=== PATIENT | female | born 1935 | race Caucasian/White ===

== ENCOUNTER 2016-09-09 15:11 | Emergency (ER) | payer MEDICARE, BC ==
[~2016-09-09] VITALS: Ht 154.9 cm; Wt 68.1 kg
[~2016-09-09 15:11] MED LIST: ASPI81TA2 PO; CALC1TAB PO; CARV3.123 PO; FISH1CAP2 PO; ISOS60TA4 PO; LEVO25TA9 PO; LORA10TA7 PO; MAGN200T4 PO; MELA1TAB15 PO; MULT1TAB69 PO; RED600TA PO; SERT50TA12 PO; TEMA30CA PO; VIT1CAPS47 PO
--- OUTSIDE RECORDS SUMMARY | 2016-09-09 15:15 | XMS REPORT | Continuity of Care Document ---
Author Author [facility] Organization [facility] Address Unknown Phone Unavailable Allergies Active Description Code Type Severity Reaction Onset Reported/Identified Relationship to Patient Clinical Status Yes SULFA ASULFA N/A N/A Yes Sulfa (Sulfonamide Antibiotics) 491 Unknown N/A Medications Medication Packaging Start Date Stop Date Route Dosage Sig DOCUSATE SODIUM 08/29/2016 08/29/2016 BIDPRN ACETAMINOPHEN 08/29/2016 08/29/2016 Q4HPRN ACETAMINOPHEN 08/29/2016 08/29/2016 Q4HPRN SODIUM CHLORIDE 0.9 % 08/29/2016 08/29/2016 PRNIV ALUM-MAG HYDROXIDE-SIMETH 08/29/2016 08/29/2016 Q4HPRN MAGNESIUM HYDROXIDE 08/29/2016 08/29/2016 HSPRN FLUTICASONE 08/29/2016 08/29/2016 QDPRN CARVEDILOL 08/29/2016 08/29/2016 BIDWM ASPIRIN EC 08/29/2016 08/29/2016 0700 amLODIPine 08/29/2016 08/29/2016 QD LEVOTHYROXINE 08/29/2016 08/29/2016 ACB BENAZEPRIL 08/29/2016 08/29/2016 QD ISOSORBIDE MONONITRATE 08/29/2016 08/29/2016 HS Problems Procedures Results Test Result Range CBC NO DIFF (HEMOGRAM) - 08/29/16 08:30 WBC - WHITE CELL COUNT 5.8 X10(3) 4.5-11.0 RBC - RED CELL COUNT 3.27 X10(6) 4.20-5.40 PLATELET COUNT 184 X10(3) 150-450 HEMOGLOBIN 12.1 g/dl 12.0-16.0 HEMATOCRIT 34.2 % 38.0-47.0 MCV 104.6 fL 80.0-96.0 MCH 37 pg 27-31 MCHC 35.4 % 32.0-36.0 HOLD SPECIMEN FOR BLOOD BANK - 08/29/16 08:30 HOLD SPECIMEN FOR BLOOD BANK ARC LIPID PANEL - 08/29/16 08:30 CHOLESTEROL 183 mg/dl <=199 HDL CHOLESTEROL 70 mg/dl 40-60 TRIGLYCERIDES 96 mg/dl <=200 LDL, CALCULATED 93.8 mg/dl 0.0-99.0 VLDL, CALCULATED 19.2 mg/dl 0.0-130.0 CARDIAC RISK 3 CMP - COMPREHENSIVE METABOLIC PANEL - 08/29/16 08:30 GLUCOSE 92 mg/dl 74-106 BUN 16 mg/dl 7-18 CREATININE 1.06 mg/dl 0.55-1.02 eGFR 50 mL/min SODIUM (NA) 144 mEq/L 136-146 POTASSIUM, BLOOD 4.0 mEq/L 3.5-5.1 CHLORIDE 109 mEq/L 98-107 CO2 (BICARBONATE) 28 mEq/L 21-32 CALCIUM 8.8 mg/dl 8.5-10.1 ALBUMIN, SERUM 3.4 g/dl 3.4-5.0 PROTEIN, TOTAL 6.4 g/dl 6.4-8.2 AST (SGOT) 19 U/L 15-37 ALT (SGPT) 20 U/L 14-59 ALK PHOS 76 U/L 46-116 BILIRUBIN, TOTAL 0.3 mg/dl 0.2-1.0 Encounters ACCT No. Visit Date/Time Discharge Status Pt. Type Provider Facility Loc./Unit Complaint [id number] 08/29/2016 07:49:00 08/29/2016 19: 24:00 DIS Outpatient SHANNAN WILKERSON [facility] 120 CAD, CP
[2016-09-09 15:17] VITALS: Ht 154.9 cm; Wt 68.1 kg
--- NOTE | 2016-09-09 15:47 | ERPDOC ---
Departure Disposition Decision Date: Sep 09, 2016 Disposition Decision Time: 17:42 (AGATA LATHAM APRN) Disposition: 01 DISCHARGED HOME, SELF-CARE Impression Impression (AGATA LATHAM APRN) Impression: Primary Impression: Groin lump Additional Impression: Status post cardiac catheterization Severity: Moderate (AGATA LATHAM APRN) Condition: Stable Seen By: Mid-level only (AGATA LATHAM APRN) Referrals: YUAN RAE MD (Family) Patient Instructions: Wound Healing and Your Diet (ED) Problems/Meds/Labs Reviewed?: Yes Medications reviewed and manag: Yes (AGATA LATHAM APRN) Additional Instructions: Your arterial ultrasound was negative for a pseudoaneurysm. If you have any additional problems follow with Dr. Do your qa engineer. Follow up care ordered?: Yes Mental Status: Alert, Oriented (AGATA LATHAM APRN) HPI - General Medical General Chief Complaint: Post-Surgical Problem Stated Complaint: POST SURG PAIN Time Seen by Provider: 15:37 Source: patient (AGATA LATHAM APRN) Time Seen by Provider: 15:37 (RAUL PERES DO) HPI - General Medical Initial Comments 81-year-old female presents to ED status post cardiac catheterization on . Patient states that she was told to go directly to the ER if she had any swelling or lumps at cath site in groin. Patient states that for the past 2 days she has noticed a lump at catheterization site in right groin that is larger than a pea. Patient states that she has had intermittent tingling in her thigh as well, however she has this associated also with her chronic back pain. Patient denies fever, chill, pain in groin, or increased ecchymosis or abdominal distension. Dr. Do is her qa engineer who did heart catheterization. Pain Scale: Now: 0/10 Associated Symptoms: DENIES: chest pain, cough, diaphoresis, fever/chills, headaches, loss of appetite, malaise, nausea/vomiting, rash, seizure, shortness of breath, syncope, weakness (AGATA LATHAM APRN) Allergies: Coded Allergies: Fxuxulb-Yqq-Skn Reductase Inhibitor (Unverified Allergy, Unknown, 12/24/14) Sulfa (Sulfonamide Antibiotics) (Verified Allergy, Unknown, HIVES, ) atorvastatin calcium (Verified Allergy, Unknown, 11/11/09) pravastatin sodium (Verified Allergy, Unknown, 11/11/09) simvastatin (Verified Allergy, Unknown, 11/11/09) sulfamethoxazole (Verified Allergy, Unknown, 11/11/09) trimethoprim (Verified Allergy, Unknown, 11/11/09) naproxen sodium (Verified Adverse Reaction, Unknown, 03/21/11) Past History Past Medical History Metabolic: hypercholesterolemia, hypertension, hypothyroidism Cardiac: DENIES: angina Respiratory: DENIES: asthma GI: DENIES: ulcers Female: DENIES: renal insufficiency Neurological: DENIES: seizures Musculoskeletal: osteoarthritis Psychological: DENIES: depression (AGATA LATHAM GEOPHYSICAL DRAFTER) Surgical History General: appendix, other (parial thyroidectomy) Cardiac: cardiac bypass, cardiac cath (AGATA LATHAM APRN) Family History Family PMH: FOUND: other (noncontributory) (AGATA LATHAM APRN) Vaccines Hx Influenza Vaccination: Yes (FALL 2013) (AGATA LATHAM APRN) Social History Marital Status: Sexuality: male partner (AGATA LATHAM APRN) Review of Systems Constitutional Constitutional: DENIES: chills, dizziness, fever, weakness (AGATA LATHAM GEOPHYSICAL DRAFTER) Eyes General: DENIES: erythema, exudate Lids/Accessories: DENIES: erythema, swelling (AGATA LATHAM GEOPHYSICAL DRAFTER) ENMT Ears: DENIES: pain Hearing: DENIES: hearing loss Sinuses: DENIES: congestion, rhinorrhea Mouth/Throat: DENIES: sore throat (KARINA LATHAMS A GEOPHYSICAL DRAFTER) Cardiovascular Cardiac: DENIES: chest pain, murmur Rhythm/Rate: DENIES: palpitations (KARINA LATHAMS Jan GEOPHYSICAL DRAFTER) Pulmonary Respiratory: DENIES: cough, dyspnea (KARINA LATHAMS A GEOPHYSICAL DRAFTER) GI Upper Abdomen: DENIES: nausea, pain, vomiting Lower Abdomen: DENIES: blood in stool, diarrhea, pain (KARINA LATHAMS A GEOPHYSICAL DRAFTER) General: DENIES: dysuria, pain (KARINA LATHAMS A GEOPHYSICAL DRAFTER) Musculoskeletal General: DENIES: joint pain, pain, tenderness (AGATA LATHAM A GEOPHYSICAL DRAFTER) Integumentary Skin: DENIES: color change, itching, rash (KARINA LATHAMS A GEOPHYSICAL DRAFTER) Neurological General: DENIES: ataxia, change in strength, numbness, paralysis/paresis, weakness (AGATA LATHAM GEOPHYSICAL DRAFTER) Psychiatric Psychiatric: DENIES: anxiety, depression, nervousness (AGATA LATHAM GEOPHYSICAL DRAFTER) Physical Exam General General Nourishment: well nourished, well developed, adult General Body Habitus: well groomed (AGATA LATHAM APRN) Vitals and Pain First Documented Vital Signs Date Time Temp Pulse Resp B/P Pulse Ox O2 Delivery O2 Flow Rate FiO2 09/09/16 15:17 97.7 65 16 146/74 98 Room Air (RAUL PERES DO) Vitals and Pain Weight: Kilograms: Height (feet): 5 Height (inches): 1.00 Triage Pain Scale: (AGATA LATHAM APRN) Eyes (brief) Eyes Brief: found: EOMI (AGATA LATHAM APRN) ENMT (brief) ENMT Brief: NOT FOUND: nasal exudate, nasal swelling (KARINA LATHAMS A GEOPHYSICAL DRAFTER) Neck (brief) Neck: FOUND: trachea midline (KARINA LATHAMS Jan GEOPHYSICAL DRAFTER) Respiratory (brief) Respiratory: FOUND: clear all conley, equal bilaterally, symmetrical (KARINA LATHAMS A GEOPHYSICAL DRAFTER) Cardiovascular (brief) Cardiac: FOUND: regular rate, regular rhythm Pulses: all distal extremities, equal, strong (KARINA LATHAMS A GEOPHYSICAL DRAFTER) Musculoskeletal Extremity : Side: Right Extremity: thigh Extremity Findings: FOUND: discoloration (approximately a 1 cm 8 cm horizontal area of ecchymosis consistent with heart cath), pain (Mild TTP at incision site in groin (over femeral artery)), swelling (appox 2x2 cm lump under tissue at cath site over the femoral artery in groin), NOT FOUND: deformity (KARINA LATHAMS A GEOPHYSICAL DRAFTER) Integumentary (brief) Integumentary Brief: FOUND: dry, pink, warm (KARINA LATHAMS A GEOPHYSICAL DRAFTER) Neurologic (brief) Neurological Brief: FOUND: motor-no gross deficits, sensory-no gross deficits ( KARINA LATHAMS A GEOPHYSICAL DRAFTER) Psychiatric (brief) Psychiatric Brief: FOUND: alert, normal affect, oriented (KARINA LATHAMS A GEOPHYSICAL DRAFTER ) Differential Diagnoses Considering: Other (pseudoaneurysm, lymphadenopathy, abscess, cellulitis) (AGATA LATHAM GEOPHYSICAL DRAFTER) Progress Results/Orders Orders Procedure Category Date Status Time Us Arterial Extremity US 09/09/16 Resulted Lower Rt (RAUL PERES DO) Progress Progress I discussed arterial ultrasound results with patient and answer questions. Patient verbalized understanding of treatment plan, follow-up with Dr. Meadows as needed and return precautions. (AGATA LATHAM APRN) Consult/PCP Consult/PCP : Type of discussion: Phone Consult/PCP Discussion Details I discussed patient's exam findings with Dr. Lindo taking call for Dr. Do. He suggested we go ahead and get an arterial ultrasound to rule out pseudoaneurysm even with minimal symptoms. (AGATA LATHAM APRN) Ultrasound US : Ultrasound: Arterial Doppler Interpretation: Normal (no pseudoaneurysm) (AGATA LATHAM APRN) AGATA LATHAM APRN Sep 09, 2016 15:47 RAUL PERES DO Sep 13, 2016 06:38
--- OUTSIDE RECORDS SUMMARY | 2016-09-09 15:48 | XMS REPORT | Continuity of Care Document ---
Author Author [facility] Organization [facility] Address Unknown Phone Unavailable Allergies Active Description [...] Status Pt. Type Provider Facility Loc./Unit Complaint [id number] 08/29/2016 07:49:00 08/29/2016 19: 24:00 DIS Outpatient SHANNAN WILKERSON [facility] 120 CAD, CP
--- NOTE | 2016-09-09 15:54 | NUR ---
PROVIDER Ever ALTHAM APRN AT BEDSIDE FOR EXAM.
[2016-09-09] MEDS ORDERED: MAGN400C PO (16:01)
[2016-09-09] MEDS ORDERED: CALC-235 PO (16:04)
[2016-09-09] MEDS ORDERED: AMLO2.5T PO (16:07)
[2016-09-09] MEDS ORDERED: CARV12.52 PO (16:07)
[2016-09-09] MEDS ORDERED: BENA5TAB3 PO (16:07)
--- NOTE | 2016-09-09 16:55 | NUR ---
STATUS PT RESTING IN CART. DENIES NEEDS AT THIS TIME. ADVISED WAITING FOR SONO TO COME FOR ULTRASOUND. CALL LIGHT WITHIN, REACH WILL CONTINUE TO MONITOR.
--- NOTE | 2016-09-09 17:15 | NUR ---
SONO AT BEDSIDE.
[2016-09-09 18:30] VITALS: BP 133/60; PULSE 56; RESP 16; TEMP 97.7; O2SAT 97
--- NOTE | 2016-09-09 18:30 | NUR ---
DISCHARGE WRITTEN INSTRUCTIONS REVIEWED AND SENT WITH PT. PT VERBALIZES UNDERSTANDING OF DI, DENIES QUESTIONS. STATES "I CAME IN MORE FOR REASSURANCE THAN ANYTHING." PT AMBULATES OUT OF ER WITH STEADY GAIT ACCOMP BY SPOUSE AT THIS TIME.
--- NOTE | 2016-09-10 10:54 | DI ---
Indication: ITS.REASON: status post heart cath on 3, mild swelling at site PROCEDURE: US ARTERIAL EXTREMITY LOWER RT: Technique: Grayscale color and duplex Doppler imaging was performed of the arterial tree of the right groin. Findings: Normal arterial and venous waveforms in the common femoral and superficial femoral artery and vein. No AV fistula or pseudoaneurysm identified. No fluid collection or significant hematoma. IMPRESSION: No pseudoaneurysm seen. There is a preliminary report by virtual radiologic. .
== END 2016-09-09 18:30 | disposition home or self-care (01) ==
LOC: ED 15:11
DX: R22.41 Localized swelling, mass and lump, right lower limb (principal); M79.89 Other specified soft tissue disorders; M79.651 Pain in right thigh; R20.2 Paresthesia of skin; Z98.890 Other specified postprocedural states

== ENCOUNTER → 2016-10-27 | Outpatient (CLI) | payer MEDICARE, BC ==
[~2016-10-27] MED LIST changes: +AMLO2.5T PO; -ASPI81TA2 PO; +BENA5TAB3 PO; +CALC-235 PO; -CALC1TAB PO; +CARV12.52 PO; -CARV3.123 PO; -LORA10TA7 PO; -MAGN200T4 PO; +MAGN400C PO; -MELA1TAB15 PO; -SERT50TA12 PO
== END ==
LOC: WC.BC 16:06
DX: Z12.31 Encounter for screening mammogram for malignant neoplasm of breast (principal); N64.59 Other signs and symptoms in breast
CPT/HCPCS: 77063; G0202

== ENCOUNTER 2017-08-21 03:53 | Observation (INO) ==
[2017-08-21] MEDS ORDERED: METHYLPREDNISOLONE SOD SUCC 125mg/2ml INJECTION IVP ONE (04:03)
[2017-08-21] MEDS ORDERED: DiphenhydrAMINE 50 MG/ML INJECTION IVP ONE ×2 (04:03→11:00)
[2017-08-21] MEDS ORDERED: EPINEPHrine 1mg/ml PRESERVATIVE-FREE INJ AMP IM ONE (04:03)
--- NOTE | 2017-08-21 04:07 | Emergency Department Report ---
General Adult HPI - General Chief complaint: Medical Emergency Stated complaint: swelling tongue, diff breathing Time Seen by Provider: 08/21/17 04:03 Source: patient, family Mode of arrival: ambulatory Limitations: no limitations - History of Present Illness HPI narrative: Patient is a 82-year-old female presents emergency room for evaluation of swelling of the tongue. Patient awoke this morning approximately 1:30 AM felt that she had bitten the right side of her tongue. Patient's had increasing swelling, does state she might feel mildly short of breath. Patient decided this morning to present to the ER for evaluation no acute distress on arrival Onset (ago): hour(s) - Related Data Home Medications Medication Instructions Recorded Confirmed Multivitamin [Multivitamins] 1 tab PO DAILY #0 12/24/14 08/21/17 [place]-3 Fatty Acids/Fish Oil [Fish 3,000 mg PO DAILY #0 12/24/14 08/21/17 Oil 1,000 mg Capsule] Red Yeast Rice 1,200 mg PO DAILY #0 12/24/14 08/21/17 Calcium Carb/D3/Magnesium/Zinc 1 tab PO DAILY #0 09/09/16 08/21/17 [Msbdcsl-Cim-Zhow-Vit D Tablet] Magnesium Oxide [Magnesium] 400 mg PO DAILY #0 09/09/16 08/21/17 Amlodipine [Norvasc] 2.5 mg PO DAILY 08/21/17 08/21/17 Isosorbide Mononitrate ER [Imdur] 30 mg PO DAILY 08/21/17 08/21/17 Temazepam [Restoril] 30 mg PO DAILY 08/21/17 08/21/17 Previous Rx's Medication Instructions Recorded levothyroxine 25 mcg tablet 0.5 tab PO DAILY #90 tab 12/20/16 Coreg (carvedilol) 12.5 mg tablet 12.5 mg PO BID #180 tab 06/08/17 benazepril 5 mg tablet 5 mg PO DAILY #90 tab 08/20/17 Allergies Allergy/AdvReac Type Severity Reaction Status Date / Time simvastatin Allergy Unknown Verified 08/21/17 04:10 Brwuogd-Ljm-Wix Reductase Allergy Unknown Verified 08/21/17 04:10 Inhibitor Sulfa (Sulfonamide Allergy Unknown HIVES Verified 08/21/17 04:10 Antibiotics) sulfamethoxazole Allergy Unknown Verified 08/21/17 04:10 trimethoprim Allergy Unknown Verified 08/21/17 04:10 naproxen AdvReac Verified 08/21/17 04:10 Review of Systems Constitutional: Denies: fever, chills, weakness Eyes: Denies: eye pain, eye discharge, vision change ENT: Reports: dysphagia, other (swelling of the tongue). Denies: ear pain, throat pain, dental pain Cardiovascular: Denies: chest pain, palpitations Respiratory: Denies: cough, dyspnea, wheezes Gastrointestinal: Denies: abdominal pain, nausea, vomiting Genitourinary: Denies: urgency, dysuria, frequency Musculoskeletal: Denies: back pain, joint swelling Integumentary: Reports: swelling (tongue swelling). Denies: alopecia, change in hair, rash Neurological: Denies: headache, weakness Psychiatric: Denies: anxiety Endocrine: Denies: fatigue Hematological/Lymphatic: Denies: easy bleeding Allergic/Immunologic: Reports: facial swelling PFS Patient Stated Medical History Coronary Artery Disease Yes Hypertension Yes Gastroesophageal Reflux Yes Disease Clinic Medical History (Last Updated 08/10/17 @ 10:22 by Maria Ines Davis APRN) Difficulty sleeping (Chronic Medical) Hypothyroidism (Chronic Medical) Dyspepsia (Chronic Medical) Family history of colon cancer in father (Chronic Medical) Environmental allergies (Chronic Medical) CAD (coronary artery disease) (Chronic Medical) Hypercholesteremia (Chronic Medical) Low back pain syndrome (Chronic Medical) Thyroid goiter (Chronic Medical) 1994 History of seizure (Chronic Medical) 1953 Surgical History: R thyroid-07/1996. Appendectomy. Tubal surgery. stent LAD 1998. CABG 01/2000;. Heart cath 12/2000, 05/2009, 08/2016. Ventral hernia-2003. D&C 03/2011 for thickened endometrial stripe. Bilateral cataract excision 08/2011. Colonoscopy 2014 Family History: Family History (Last Reviewed 05/21/17 @ 10:27 by JANIYA Terrell) Father , 77 Colon cancer CVA (cerebral vascular accident) Mother , 61 CAD (coronary artery disease) Myocardial infarct Sister Macular degeneration Hypercholesteremia Sister CAD (coronary artery disease) Macular degeneration Brother Colon cancer CAD (coronary artery disease) - Social History Smoking status: Never smoker Substance use type: does not use Alcohol intake frequency: does not drink Household members: spouse Current occupational status: retired Physical Exam - General General appearance: alert, in no apparent distress - Eye Eye exam: Present: EOMI - ENT ENT exam: Present: other (patient does have moderate market swelling to right side of tongue, and sub-lingular space) - Neck Neck exam: Present: full ROM, trachea midline. Absent: lymphadenopathy - Chest Chest inspection: Present: symmetric chest wall rise. Absent: tenderness - Respiratory Respiratory exam: Present: normal lung sounds bilaterally. Absent: respiratory distress, wheezes, stridor - Cardiovascular Cardiovascular exam: Present: regular rate, normal rhythm, normal heart sounds - Abdominal Exam Abdominal exam: Present: soft, normal bowel sounds. Absent: distention, tenderness - Back Exam Back exam: Absent: tenderness - Skin Skin exam: Present: warm, dry. Absent: rash, erythema - Neurological Exam Neurological exam: Present: alert, oriented X3 - Psychiatric Psychiatric exam: Present: normal affect, normal mood Course Vital Signs Temperature 98 F 08/21/17 04:20 Pulse Rate 62 08/21/17 04:20 Respiratory Rate 12 08/21/17 04:20 Blood Pressure 124/66 08/21/17 04:20 Pulse Oximetry 98 08/21/17 04:20 Temperature 98 F 08/21/17 04:20 Pulse Rate 58 L 08/21/17 05:15 Respiratory Rate 12 08/21/17 04:20 Blood Pressure 141/66 H 08/21/17 05:15 Pulse Oximetry 97 08/21/17 05:15 Medical Decision Making - [facility] Narrative Medical decision making narrative: Patient was given epinephrine immediately on arrival as well as IV Benadryl, Solu-Medrol, and Pepcid. Patient is observed in the emergency department for the last hour with minimal improvement, however patient does states she is not feeling any worse. Discuss case with Dr. Carlos will admit observation status to the floor - Lab Data Result diagrams: 08/21/17 04:45 08/21/17 04:45 Lab Results 08/21/17 08/21/17 Range/Units 04:45 04:45 WBC 11.2 H (4.5-11.0) T/MM3 RBC 3.27 L (4.00-5.20) M/MM3 Hgb 11.8 L (12-16) GM/DL Hct 35.1 L (36-46) % MCV 107.3 H (80-100) UM3 MCH 36.1 H (26-34) UUG MCHC 33.6 (31-37) GM/DL RDW Std Deviation 47.2 (36.9-50.2) FL Plt Count 351 (130-400) T/MM3 MPV 9.3 L (9.4-12.4) UM3 Immature Gran % (Auto) 0.4 (0.0-0.5) % Neut % (Auto) 57.2 (33-66) % Lymph % (Auto) 30.2 (23-45) % [place] % (Auto) 8.7 (0-9.0) % Eos % (Auto) 3.1 (0-4) % Baso % (Auto) 0.4 (0-2) % Neut # (Auto) 6.4 (1.8-7.7) T/MM3 Lymph # (Auto) 3.4 (1-4.8) T/MM3 [place] # (Auto) 1.0 H (0-0.8) T/MM3 Eos # (Auto) 0.4 (0-0.5) T/MM3 Baso # (Auto) 0.1 (0-0.2) T/MM3 Abs Immat Gran (auto) 0.04 H (0.00-0.03) T/MM3 Turbidity < 20 (0-20) Sodium 146 H (134-144) MEQ/L Potassium 3.9 (3.6-5) MEQ/L Chloride 108 H (98-107) MEQ/L Carbon Dioxide 26 (22-30) MEQ/L Anion Gap 12 (5-15) MEQ/L BUN 10.0 (7-17) MG/DL Creatinine 0.8 (0.7-1.2) mg/dL GFR Calculation 69 BUN/Creatinine Ratio 13 (6-26) RATIO Glucose 127 H (65-110) MG/DL Calculated Osmolality 282 H (261-280) MOSM/KG Calcium 9.3 (8.4-10.2) MG/DL Icterus Index < 2 (0-7) Specimen Hemolysis < 15 (0-25) Critical Care Time Critical Care Time: Yes Total Critical Care Time: 38 Attestation: The high probability of a clinically significant, sudden or life threatening deterioration of the respiratory system(s) required my full and direct attention , intervention and personal management. The aggregate critical care time was 38 minutes. This time is in addition to time spent performing reported procedures but includes the following: X Data Review and interpretation X Patient assessment and monitoring of vital signs X Documentation X Medication orders and management Disposition Clinical Impression: Angioedema Qualifiers: Encounter type: initial encounter Qualified Code(s): T78.3XXA - Angioneurotic edema, initial encounter Disposition: 02 To OBS [facility] Condition: Stable Prescriptions: No Action Multivitamin [Multivitamins] 1 tab PO DAILY #0 [place]-3 Fatty Acids/Fish Oil [Fish Oil 1,000 mg Capsule] 3,000 mg PO DAILY #0 Magnesium Oxide [Magnesium] 400 mg PO DAILY #0 Calcium Carb/D3/Magnesium/Zinc [Qbuhtzx-Vlj-Nmua-Vit D Tablet] 1 tab PO DAILY #0 Amlodipine [Norvasc] 2.5 mg PO DAILY Temazepam [Restoril] 30 mg PO DAILY Isosorbide Mononitrate ER [Imdur] 30 mg PO DAILY Red Yeast Rice 1,200 mg PO DAILY #0 levothyroxine 25 mcg tablet 0.5 tab PO DAILY #90 tab Coreg (carvedilol) 12.5 mg tablet 12.5 mg PO BID #180 tab benazepril 5 mg tablet 5 mg PO DAILY #90 tab Referrals: Maria Ines Davis APRN [Family Provider] - Time of Disposition: 05:17 - Seen By: physician
[2017-08-21] MEDS: SALINE FLUSH 10ml SYRINGE IVF PRN ×2 (04:10→04:12)
[2017-08-21] MEDS ORDERED: NS 1,000 ML IV SCH (04:45)
[2017-08-21] MEDS ORDERED: FAMOTIDINE PB 20 MG/50 ML BAG IV SCH (04:45)
[2017-08-21] MEDS ORDERED: ONDANSETRON 4 MG/2 ML INJECTION IVP PRN (05:32)
--- NOTE | 2017-08-21 05:51 | History & Physical Report ---
History of Present Illness Date: 08/21/17 Chief complaint: tongue swelling HPI: Patient was seen via telemedicine with nursing assistance on 08/21/2017. Mrs. Hammer is a pleasant 82yo woman with h/o CAD s/p CABG and subsequent stent , essential HTN, dyslipidemia, hypothyroidism presenting after awakening at 0130 feeling as though her tongue were numb. She then realized it was swollen more on the R side with some thickening and difficulty with swallow. No mouth trauma, incontinence, SCOTT or other pain. No nausea or vomiting. Notes recent amoxicillin from more bronchitis symptoms, but no other medication changes. Benazepril for a year of note. No dyspnea. Given benadryl, famotidine, steroids iv in the ED and feeling mildly better with still dysarthria and dysphagia. Review of Systems All systems PM: 10-point ROS was reviewed, no additional remarkable complaints except Past Medical History Clinic Medical History (Last Updated 08/10/17 @ 10:22 by Maria Ines Davis APRN) Difficulty sleeping (Chronic Medical) Hypothyroidism (Chronic Medical) Dyspepsia (Chronic Medical) Family history of colon cancer in father (Chronic Medical) Environmental allergies (Chronic Medical) CAD (coronary artery disease) (Chronic Medical) Hypercholesteremia (Chronic Medical) Low back pain syndrome (Chronic Medical) Thyroid goiter (Chronic Medical) 1994 History of seizure (Chronic Medical) 1953 Surgical History: R thyroid-07/1996. Appendectomy. Tubal surgery. stent LAD 1998. CABG 01/2000;. Heart cath 12/2000, 05/2009, 08/2016. Ventral hernia-2003. D&C 03/2011 for thickened endometrial stripe. Bilateral cataract excision 08/2011. Colonoscopy 2014 Family History: Family History (Last Reviewed 05/21/17 @ 10:27 by JANIYA Terrell) Father , 77 Colon cancer CVA (cerebral vascular accident) Mother , 61 CAD (coronary artery disease) Myocardial infarct Sister Macular degeneration Hypercholesteremia Sister CAD (coronary artery disease) Macular degeneration Brother Colon cancer CAD (coronary artery disease) Family History Updates: father of colon cancer, mother of CAD by age 60 - Social History Smoking status: Never smoker Substance use type: does not use Alcohol intake frequency: does not drink Household members: spouse Medications Home Medications Medication Instructions Recorded Confirmed Type Multivitamin [Multivitamins] 1 tab PO DAILY #0 12/24/14 08/21/17 History [place]-3 Fatty Acids/Fish Oil [Fish 3,000 mg PO DAILY #0 12/24/14 08/21/17 History Oil 1,000 mg Capsule] Red Yeast Rice 1,200 mg PO DAILY #0 12/24/14 08/21/17 History Calcium Carb/D3/Magnesium/Zinc 1 tab PO DAILY #0 09/09/16 08/21/17 History [Wmhcdxh-Eaq-Ibci-Vit D Tablet] Magnesium Oxide [Magnesium] 400 mg PO DAILY #0 09/09/16 08/21/17 History levothyroxine 25 mcg tablet 0.5 tab PO DAILY #90 tab 12/20/16 08/21/17 Rx Coreg (carvedilol) 12.5 mg tablet 12.5 mg PO BID #180 tab 06/08/17 08/21/17 Rx benazepril 5 mg tablet 5 mg PO DAILY #90 tab 08/20/17 08/21/17 Rx Amlodipine [Norvasc] 2.5 mg PO DAILY 08/21/17 08/21/17 History Isosorbide Mononitrate ER [Imdur] 30 mg PO DAILY 08/21/17 08/21/17 History Temazepam [Restoril] 30 mg PO DAILY 08/21/17 08/21/17 History Allergies Allergy/AdvReac Type Severity Reaction Status Date / Time simvastatin Allergy Unknown Verified 08/21/17 04:10 Gywpsof-Mdy-Vmc Reductase Allergy Unknown Verified 08/21/17 04:10 Inhibitor Sulfa (Sulfonamide Allergy Unknown HIVES Verified 08/21/17 04:10 Antibiotics) sulfamethoxazole Allergy Unknown Verified 08/21/17 04:10 trimethoprim Allergy Unknown Verified 08/21/17 04:10 benazepril AdvReac Severe Swelling Verified 08/21/17 08:06 of Lip/Tongue/Throat naproxen AdvReac Verified 08/21/17 04:10 Exam Vital Signs: Temperature 98 F 08/21/17 04:20 Pulse Rate 58 L 08/21/17 05:15 Respiratory Rate 12 08/21/17 04:20 Blood Pressure 141/66 H 08/21/17 05:15 Pulse Oximetry 97 08/21/17 05:15 Telemetry Rhythm: Sinus Bradycardia - Constitutional Present: no acute distress, well nourished - Routine HEENT Exam Head: Present: normocephalic Eye: Present: EOMI Comments: tongue swelling on R evident with lips ok - Routine Respiratory Exam Present: CTA bilaterally. Absent: accessory muscle use - Routine Cardiovascular Exam Present: RRR - Routine Extremities Exam Absent: cyanosis, clubbing, edema - Routine Skin Exam Present: intact - Routine Neurological Exam Present: alert, oriented X3, CN II-XII intact, moving all extremities Results - Labs CBC & Chem 7: 08/21/17 04:45 08/21/17 04:45 Assessment and Plan (1) Angioedema Current visit: Yes Status: Acute (2) Essential hypertension Current visit: Yes Status: Acute (3) Hypothyroidism Current visit: No Status: Chronic (4) CAD (coronary artery disease) Current visit: No Status: Chronic (5) Low back pain syndrome Current visit: No Status: Chronic Assessment and Plan: 1. Angioedema with dysarthria and dysphagia--admit to obs with continued IV steroids, benadryl once more, pepcid. NPO with IVF. Note given epi in ED once as well. 2. CAD on bblocker and noted statin allergy (would rec qod dosing of prava or atorva), nitrate. 3. Essential HTN--continue carvedilol, ISMO, amlodipine. 4. Hypothyroidism on replacement. 5. Hyperglycemia, mild and likely stress or steroid induced, but class 1 obesity by BMI 30-35 Yobany Assessment Angioedema CAD HTN HDL Seasonal allergies GERD Chronic low back pain Insomnia Obesity with BMI 30.7 Resuscitation Status: Do Not Resuscitate - Physician Narrative Physician: Jordan Haywood MD Narrative: Date: 08/21/17 Time: 0548 Have independently interviewed and examined pt. Chart reviewed. Reviewed above note and concur. CC: Swelling of tongue, difficulty breathing HPI: 82 y/o female with CAD/HTN on PIO inhibitor presents to [facility] secondary to acute onset of swelling of tongue and difficulty breathing. Work at about 1: 30 am and felt fullness to tongue, like she had bitten tongue while sleeping. Got up to check on the swelling. Noted fullness/swelling of tongue and lips. Symptoms did progress-more fullness and swelling as time went. Started to feel more short of air-harder to get wind in. No cough/congestion. Not having swelling of arms/legs. No rash. Not having increased sinus congestion, eye matting/watering, or ear fullness/congestion. Heart felt slightly fast. No n/v. No f/c. With progression of symptoms, presents to [facility] for evaluation. Given IV Solu-Medrol and Pepcid. Placed in OBS for further evaluation and treatment. PHMx: CAD, HTN, HDL, GERD, Seasonal Allergies, Low Back pain, insomnia, Hx Seizure in 1953 PSxHx: Appy, Stent 1998, CABG . Ventral hernia Sx , D/C, B Cataract MEDS/ALLERGIES: see Mar SHx: x 48 years (today [employer]), lives in [place], No smoke/ETOH, Maria Ines Davis PCP FHx: Father at 77 - Colon Ca, CVA. Mother at 61 - CAD/NE. Brother with CAD and Colon Ca. ROS: as in HPI, remainder of 10 point ROS discussed with patient and negative. EXAM GEN: [id number] alert and orient HEENT: NC/AT PERRLA EOMI MMM Voice sounds thick. Neck: Midline, supple, No tracheal deviation Lungs: decreased bilaterally, no wheezes or distress CV: regular rate and rhythm without murmur AB: soft nt/nd +BS EXT: no c/c. Trace BLE. Radial pulses intact bilaterally Neuro: CN II-XII intact. No focal motor deficits Psych: awake alert appropriate SKIN: warm and dry Assessment Angioedema CAD HTN HDL Seasonal allergies GERD Chronic low back pain Insomnia Obesity with BMI 30.7 Plan OBS status Solu-Medrol given at 125mg IV, Benadryl IV, and Epinephrines in ED, continue with Solu-Medrol 62.5mg IV q6 hours. Monitor closely for increasing symptoms - may need to add additional H1/H2 wilner. IVF for hydration. Hold benazepril due to angioedema. Speech to check swallow function before initiating or intake to decrease risk for aspiration. DNR as per her requests. Care to return to [facility] at time of discharge from [facility]. Hospital Course Summary Disclaimer: The visit summary below is not to be considered part of the above Progress Note. Hospital Course: 08/21/17 OBS status Solu-Medrol given at 125mg IV, Benadryl 50mg IV, and Epinephrines in ED, continue with Solu-Medrol 62.5mg IV q6 hours. Monitor closely for increasing symptoms - may need to add additional H1/H2 wilner. IVF for hydration. Hold benazepril due to angioedema. Speech to check swallow function before initiating or intake to decrease risk for aspiration. DNR as per her requests. Care to return to [facility] at time of discharge from [facility].
[2017-08-21] MEDS: LR 1,000 ML IV SCH ×2 (06:01→16:42)
[2017-08-21 06:12] VITALS: BMI 31.1
[2017-08-21] MEDS ORDERED: --POM--CARVEDILOL 12.5 MG TABLET PO SCH (08:00)
[2017-08-21] MEDS ORDERED: ISOSORBIDE MONONITRATE 60 MG PO SCH (09:00)
[2017-08-21] MEDS ORDERED: --POM--LEVOTHYROXINE 25 MCG TABLET PO SCH (09:00)
[2017-08-21] MEDS ORDERED: AMLODIPINE 2.5 MG PO SCH (09:00)
[2017-08-21] MEDS: METHYLPREDNISOLONE SOD SUCC 125mg/2ml INJECTION IVP SCH ×2 (13:57→15:35)
[2017-08-21 14:59] VITALS: BP 130/67; PULSE 70; RESP 16; TEMP 96.4; O2SAT 92
--- NOTE | 2017-08-21 17:08 | Progress Note ---
- Date 08/21/17 Subjective: F/U: Angioedema Doing well this afternoon. Fullness and swelling to mouth and tongue resolved. Able to eat well. Breathing well. No f/c. Ambulating well, except for slight right knee pain. Feels up to going home. Objective Vital signs: Temperature 96.4 F L 08/21/17 14:58 Pulse Rate 70 08/21/17 14:58 Respiratory Rate 16 08/21/17 14:58 Blood Pressure 130/67 08/21/17 14:58 Pulse Oximetry 92 08/21/17 14:58 Height/Weight/BMI: Height 1.5 m Weight 69 kg Body Mass Index 31.1 - Constitutional Present: well nourished, well developed, cooperative - Routine HEENT Exam Head: Present: normocephalic, atraumatic Eye: Present: EOMI, PERRL ENT: Present: mucous membranes moist - Routine Respiratory Exam Present: CTA bilaterally. Absent: respiratory distress, wheezes, crackles - Routine Cardiovascular Exam Present: RRR, no murmur - Routine Abdominal Exam Present: soft, normoactive bowel sounds, non distended, non tender. Absent: guarding - Routine Extremities Exam Absent: cyanosis, clubbing - Routine Musculoskeletal Exam Musculoskeletal: Present: no clubbing or cyanosis - Routine Skin Exam Present: dry, warm - Routine Neurological Exam Present: alert, oriented X3, CN II-XII intact, moving all extremities, vision grossly intact, hearing grossly intact, normal speech. Absent: motor deficit, altered mental status - Routine Psychiatric Exam Present: normal affect, normal thought process, cooperative Results - Labs CBC & Chem 7: 08/21/17 04:45 08/21/17 04:45 Assessment and Plan (1) Angioedema Current visit: Yes Status: Acute (2) CAD (coronary artery disease) Current visit: No Status: Chronic (3) Essential hypertension Current visit: Yes Status: Acute (4) Hypothyroidism Current visit: No Status: Chronic (5) Low back pain syndrome Current visit: No Status: Chronic Assessment and Plan: Assessment Angioedema - resolved CAD HTN HDL Seasonal allergies GERD Chronic low back pain Insomnia Obesity with BMI 30.7 Plan Medically much improved. Swelling to mouth and tongue resolved. Eating well. Breathing well. Will discharge to home as medically stable. STOP benazepril. Patient voiced understanding. Could use Benadryl 25mg po every 4 hours if noticed minor swelling. Symptoms however should stay resolved. F/U with PCP in 1 week, sooner as problems or need indicate. See orders for details. Resuscitation Status: Do Not Resuscitate - Physician Narrative Physician: Jordan Haywood MD Narrative: Date: 08/21/17 Time: 1703 Hospital Course Summary Disclaimer: The visit summary below is not to be considered part of the above Progress Note. Hospital Course: 08/21/17 OBS status Solu-Medrol given at 125mg IV, Benadryl 50mg IV, and Epinephrines in ED, continue with Solu-Medrol 62.5mg IV q6 hours. Monitor closely for increasing symptoms - may need to add additional H1/H2 wilner. IVF for hydration. Hold benazepril due to angioedema. Speech to check swallow function before initiating or intake to decrease risk for aspiration. DNR as per her requests. [facility] from [facility]. 1700 - Rechecked on patient. Medically much improved. Swelling to mouth and tongue resolved. Eating well. Breathing well. Will discharge to home as medically stable. STOP benazepril. Patient voiced understanding. Could use Benadryl 25mg po every 4 hours if noticed minor swelling. Symptoms however should stay resolved. F/U with PCP in 1 week, sooner as problems or need indicate. See orders for details.
--- NOTE | 2017-08-21 17:13 | Discharge Summary ---
Discharge Information Date of admission: 08/21/17 05:20 Anticipated date of discharge: 08/21/17 Attending Physician: Jordan Haywood MD Primary care physician: Maria Ines Davis APRN - Discharge Diagnosis (1) Angioedema Status: Acute (2) CAD (coronary artery disease) Status: Chronic (3) Essential hypertension Status: Acute (4) Hypothyroidism Status: Chronic (5) Low back pain syndrome Status: Chronic Discharge diagnosis Angioedema Associated conditions and complications Hypernatremia (POA) Leukocytosis (POA) Anemia with macrocytosis CAD HTN HDL Seasonal allergies GERD Chronic low back pain Insomnia Obesity with BMI 30.7 - Laboratory Labs: Admit Laboratory Tests 08/21/17 04:45 WBC 11.2 H Hgb 11.8 L Hct 35.1 L MCV 107.3 H Plt Count 351 Neut % (Auto) 57.2 Lymph % (Auto) 30.2 [place] % (Auto) 8.7 Eos % (Auto) 3.1 Baso % (Auto) 0.4 Admit Laboratory Tests 08/21/17 04:45 Sodium 146 H Potassium 3.9 Chloride 108 H Carbon Dioxide 26 Anion Gap 12 BUN 10.0 Creatinine 0.8 GFR Calculation 69 BUN/Creatinine Ratio 13 Glucose 127 H Calculated Osmolality 282 H Calcium 9.3 History of Present Illness HPI: Mrs. Hammer is a pleasant 82yo woman with h/o CAD s/p CABG and subsequent stent , essential HTN, dyslipidemia, hypothyroidism presenting after awakening at 0130 feeling as though her tongue were numb. She then realized it was swollen more on the R side with some thickening and difficulty with swallow. No mouth trauma, incontinence, SCOTT or other pain. No nausea or vomiting. Notes recent amoxicillin from more bronchitis symptoms, but no other medication changes. Benazepril for a year of note. No dyspnea. Given benadryl, famotidine, steroids iv in the ED and feeling mildly better with still dysarthria and dysphagia. For complete details of the H&P refer to that document. Objective Vital signs: Temperature 96.4 F L 08/21/17 14:58 Pulse Rate 70 08/21/17 14:58 Respiratory Rate 16 08/21/17 14:58 Blood Pressure 130/67 08/21/17 14:58 Pulse Oximetry 92 08/21/17 14:58 Height/Weight/BMI: Height 1.5 m Weight 69 kg Body Mass Index 31.1 Hospital Course This is a general summary of the patient's hospital course. For more details refer to the complete medical record. Hospital course: 08/21/17 OBS status Solu-Medrol given at 125mg IV, Benadryl 50mg IV, and Epinephrines in ED, continue with Solu-Medrol 62.5mg IV q6 hours. Monitor closely for increasing symptoms - may need to add additional H1/H2 wilner. IVF for hydration. Hold benazepril due to angioedema. Speech to check swallow function before initiating or intake to decrease risk for aspiration. DNR as per her requests. [facility] discharge from [facility]. 1700 - Rechecked on patient. Medically much improved. Swelling to mouth and tongue resolved. Eating well. Breathing well. Will discharge to home as medically stable. STOP benazepril. Patient voiced understanding. Could use Benadryl 25mg po every 4 hours if noticed minor swelling. Symptoms however should stay resolved. F/U with PCP in 1 week, sooner as problems or need indicate. See orders for details. Time spent with patient: discharge greater than 30 minutes Resuscitation Status: Do Not Resuscitate Discharge Plan - Discharge Disposition Discharge Date: 08/21/17 Disposition: 01 Discharged Home, Self-Care *Condition: Improved Reason For Visit (Visit label in EMR): Angioedema - Discharge Medications *Discharge Medications: New DiphenhydrAMINE [Benadryl] 1 cap PO Q4H PRN #1 box PRN Reason: swelling of mouth Continue Multivitamin [Multivitamins] 1 tab PO DAILY #0 [place]-3 Fatty Acids/Fish Oil [Fish Oil 1,000 mg Capsule] 3,000 mg PO DAILY #0 Magnesium Oxide [Magnesium] 400 mg PO DAILY #0 Calcium Carb/D3/Magnesium/Zinc [Uderjex-Qdu-Xifr-Vit D Tablet] 1 tab PO DAILY #0 Amlodipine [Norvasc] 2.5 mg PO DAILY Temazepam [Restoril] 30 mg PO DAILY Isosorbide Mononitrate ER [Imdur] 30 mg PO DAILY Red Yeast Rice 1,200 mg PO DAILY #0 levothyroxine 25 mcg tablet 0.5 tab PO DAILY #90 tab Coreg (carvedilol) 12.5 mg tablet 12.5 mg PO BID #180 tab Discontinued benazepril 5 mg tablet 5 mg PO DAILY #90 tab - Discharge Packet/Instructions *Diet: Low sodium *Activity: As tolerated *Pain Management/Treatment: Continue prior home pain medications *Wound Care: N/A Additional Instructions: May use Benadryl as needed if you have swelling/ tingling of mouth. May causes sleepiness. *Expected Signs/Symptoms: Resolution of fullness and swelling on mouth and tongue. *Notify Physician if: Mouth or tongue swelling reoccurs. Shortness or breath or wheezing. *During Business Hours Contact: Maria Ines Davis *After Business Hours Contact: Call [facility] and have you care provider contacted. *Pending Lab/Results: No Pending Lab - Referrals/Follow Up *Referrals/Follow Up: Maria Ines Davis APRN [Family Provider] - 1 Week (F/U of angioedema ) - Patient Handouts Patient Handouts: Angioedema (GEN) - Dismissal Complete Discharge Instructions are:: Complete Physician Narrative - Narrative Physician: Jordan Haywood MD Attestation Narrative: Date: 08/21/17 Time: 1710 I have independently interviewed and examined patient prior to discharge. Please see H&P and my progress note for details. Medically stable for discharge to home.
== END 2017-08-21 17:40 | disposition home or self-care (01) ==
LOC: ED 03:53 → MED 03:53 → SUATTDRO 05:20 → MED 05:35
PROVIDERS: ADMIT Hospitalist; ATTEND Hospitalist